=== PATIENT | female | born 1995 ===

== ENCOUNTER 2017-12-05 17:12 | Emergency (ER) | payer OTHER ==
[2017-12-05 17:29] VITALS: BP 118/68; PULSE 76; RESP 16; TEMP 98.5; O2SAT 99
[2017-12-05 17:30] VITALS: BMI 23.3
--- NOTE | 2017-12-05 18:34 | ED PDOC ---
HPI: General Adult Time Seen by Provider: 12/05/17 17:40 Chief Complaint (Nursing): Breast Problem Chief Complaint (Provider): Right breast pain History Per: Patient History/Exam Limitations: no limitations Additional History Per: Patient Additional Complaint(s): 22yo female, comes to ER complaining of pain to her right breast x 1 month. States it has progressively getting worse. Patient denies any fever, chills, nipple drainage. She offers no additional medical complaints. She states she is unsure if she is . Past Medical History Reviewed: Historical Data, Nursing Documentation, Vital Signs Vital Signs: Last Vital Signs Temp 98.5 F 12/05/17 17:33 Pulse 76 12/05/17 17:33 Resp 16 12/05/17 17:33 BP 118/68 12/05/17 17:33 Pulse Ox 99 12/05/17 18:39 - Medical History PMH: No Chronic Diseases - Surgical History Surgical History: No Surg Hx - Family History Family History: States: No Known Family Hx - Allergies Allergies/Adverse Reactions: Allergies Allergy/AdvReac Type Severity Reaction Status Date / Time No Known Allergies Allergy Verified 12/05/17 17:33 Review of Systems ROS Statement: Except As Marked, All Systems Reviewed And Found Negative Constitutional: Negative for: Fever, Chills Musculoskeletal: Positive for: Other (right breast pain) Physical Exam - Reviewed Nursing Documentation Reviewed: Yes Vital Signs Reviewed: Yes - Physical Exam Appears: Positive for: Non-toxic Head Exam: Positive for: ATRAUMATIC, NORMAL INSPECTION, NORMOCEPHALIC Skin: Positive for: Normal Color, Warm. Negative for: Rash Eye Exam: Positive for: Normal appearance Neck: Positive for: Supple Cardiovascular/Chest: Positive for: Regular Rate, Rhythm, Other (right lateral breast tender to palpation; no mass noted. No erythema, or skin changes like p' eau d'orange noted.) Respiratory: Positive for: Normal Breath Sounds Neurologic/Psych: Positive for: Alert, Oriented. Negative for: Motor/Sensory Deficits - ECG O2 Sat by Pulse Oximetry: 99 (rA) Pulse Ox Interpretation: Normal Medical Decision Making Medical Decision Making: Impression: Breast pain Plan: * ED Upreg (-) * * Motrin for pain. * Discussed f/u with women[facility] health clinic. Scribe Attestation: Documented by Sammi Lobo acting as a scribe for RHODA Sargent. Provider Attestation: All medical record entries made by the Scribe were at my direction and personally dictated by me. I have reviewed the chart and agree that the record accurately reflects my personal performance of the history, physical exam, medical decision making, and the department course for this patient. I have also personally directed, reviewed, and agree with the discharge instructions and disposition. Disposition - Clinical Impression Clinical Impression: Pain of breast - Patient ED Disposition Is Patient to be Admitted: No Counseled Patient/Family Regarding: Diagnosis, Need For Followup, Rx Given - Disposition Referrals: [facility] [Outside] Disposition: Routine/Home Disposition Time: 18:49 Condition: STABLE Instructions: Common Breast Problems Forms: [employer] (Botswanan)
== END 2017-12-05 19:04 | disposition home or self-care (01) ==
LOC: H.ER 17:12
DX: N64.4 Mastodynia (principal)

== ENCOUNTER 2018-04-13 15:22 | Emergency (ER) | payer SELFPAY ==
[2018-04-13 15:23] VITALS: BMI 23.3
[2018-04-13 15:39] VITALS: BP 128/76; PULSE 96; RESP 18; TEMP 98.3; O2SAT 99
[2018-04-13 17:07] LABS: SQUAMOUS EPITHIAL 13 /hpf (0-5); URINE BACTERIA OCC (<OCC); URINE BILIRUBIN NEGATIVE (NEGATIVE); URINE BLOOD SMALL (NEGATIVE); URINE CLARITY CLOUDY (Clear); URINE COLOR YELLOW (YELLOW); URINE GLUCOSE (UA) NEG (NEGATIVE); URINE LEUKOCYTE ESTERASE NEG Leu/uL (Negative); URINE PROTEIN NEGATIVE (NEGATIVE); URINE UROBILINOGEN 0.2-1.0 mg/dL (0.2-1.0)
[2018-04-13 17:09] LABS: BASO % 0.3 % (0.0-2.0); EOS # 0.1 K/uL (0.0-0.7); EOS % 0.6 % (0.0-4.0); HEMOGLOBIN 13.1 g/dL (12.0-16.0); LYMPH # 2.7 K/uL (1.0-4.3); LYMPH % 29.5 % (20.0-40.0); MEAN CELL VOLUME 86.9 fl (81.0-99.0); MEAN CORPUSCULAR HGB CONC 33.4 g/dL (33.0-37.0); MEAN PLATELET VOLUME 9.8 fl (7.2-11.7); MONO # 0.6 K/uL (0.0-0.8); MONO % 6.6 % (0.0-10.0); NEUT # 5.8 K/uL (1.8-7.0); NRBC % 0.1 % (0.0-0.0); RBC 4.52 Mil/uL (3.80-5.20); WHITE BLOOD COUNT 9.2 K/uL (4.8-10.8)
--- NOTE | 2018-04-13 17:16 | ED PDOC ---
HPI: Female Pain Time Seen by Provider: 04/13/18 15:42 Chief Complaint (Nursing): Female Genitourinary History Per: Patient, [employer] (Belgian [id number]) Additional Complaint(s): Pt. states for the past 4 days she's had surpapubic pain associated with nausea, vomiting (1 episode), diarrhea (4-5 episodes). Pt. states this morning she had a positive test but last week it was negative. Denies fever, chills, cough, congestion, vaginal bleeding, hx of ectopic , sick contacts, recent travel. Abnormal Vaginal Bleeding: No Last Menstral Period: 03/17/2018 : 1 Past Medical History Reviewed: Historical Data, Nursing Documentation, Vital Signs Vital Signs: Last Vital Signs Temp 98.3 F 04/13/18 15:37 Pulse 96 H 04/13/18 15:37 Resp 18 04/13/18 15:37 BP 128/76 04/13/18 15:37 Pulse Ox 99 04/13/18 15:37 - Surgical History Surgical History: No Surg Hx - Family History Family History: States: No Known Family Hx - Home Medications Home Medications: Ambulatory Orders Medication Instructions Recorded Ibuprofen [Motrin Tab] 800 mg PO Q6H PRN #20 tab 12/05/17 Multivit/Folic Acid/I 1 tab PO DAILY #30 tab 04/13/18 [ Plus] - Allergies Allergies/Adverse Reactions: Allergies Allergy/AdvReac Type Severity Reaction Status Date / Time No Known Allergies Allergy Verified 12/05/17 17:33 Review of Systems ROS Statement: Except As Marked, All Systems Reviewed And Found Negative Genitourinary Female: Positive for: Pelvic Pain Physical Exam - Physical Exam Appears: Positive for: Well, Non-toxic, No Acute Distress Skin: Positive for: Normal Color, Warm. Negative for: Rash Gastrointestinal/Abdominal: Positive for: Normal Exam, Soft. Negative for: Tenderness Back: Negative for: L CVA Tenderness, R CVA Tenderness Neurologic/Psych: Positive for: Alert, Oriented (x3) - Laboratory Results Result Diagrams: 04/13/18 17:04 04/13/18 17:04 - ECG O2 Sat by Pulse Oximetry: 99 - Progress ED Course And Treament: Labs, TVUS ordered. TVUS: No evidence of intrauterine gestation. Findings may represent early normal/abnormal with ectopic not excluded. Close clinical follow-up with serial pelvic sonography and serum beta HCG levels is recommended. Belgian #[id number] Pt. informed of results. Advised to return to ED or go to OBGYN in 72 hours for repeat HCG/US. All questions answered. Pt. is to return to ED immediately if symtpoms worsen. Pt. verbalized correct understanding of f/u and care. Disposition - Clinical Impression Clinical Impression: Threatened - Patient ED Disposition Is Patient to be Admitted: No - Disposition Referrals: [facility] [Outside] Disposition: Routine/Home Disposition Time: 17:44 Condition: STABLE Additional Instructions: FOLLOW UP WITH YOUR OBGYN OR RETURN TO ED IN 72 HOURS FOR REPEAT BHCG OR US. RETURN TO ED IMMEDIATELY IF SYMPTOMS WORSEN CATARINA ARTEAGA, thank you for letting us take care of you today. Your provider was Sharon Chiu MD and you were treated for ABD PAIN. The emergency medical care you received today was directed at your acute symptoms. If you were prescribed any medication, please fill it and take as directed. It may take several days for your symptoms to resolve. Return to the Emergency Department if your symptoms worsen, do not improve, or if you have any other problems. Please contact your doctor or call one of the physicians/clinics you have been referred to that are listed on the Patient Visit Information form that is included in your discharge packet. Bring any paperwork you were given at discharge with you along with any medications you are taking to your follow up visit. Our treatment cannot replace ongoing medical care by a primary care provider outside of the emergency department. Thank you for allowing the [facility] team to be part of your care today. If you had an X-Ray or CT scan: A Radiologist will review the ED reading if any change in treatment is needed we will contact you. If you had a blood, urine, or wound culture: It will take several days for the results, if any change in treatment is needed we will contact you. If you had an STI test: It will take 48 hours for the results. Please call after 1 week if you have not heard back. Prescriptions: Multivit/Folic Acid/I [ Plus] 1 tab PO DAILY #30 tab Instructions: Threatened Miscarriage (DC) Forms: [facility] (Spanish)
[2018-04-13 17:20] LABS: ALB/GLOB RATIO 1.2 (1.0-2.1); ALBUMIN 4.6 g/dL (3.5-5.0); ALT/SGPT 21 U/L (9-52); AST/SGOT 28 U/L (14-36); BLOOD UREA NITROGEN 15 mg/dl (7-17); CALCIUM 9.6 mg/dL (8.4-10.2); GFR NON-AFRICAN AMERICAN > 60
--- NOTE | 2018-04-13 17:33 | US ---
Date of service: 04/13/2018 PROCEDURE: OB Pelvic Ultrasound HISTORY: suprapubic pain LMP: 03/08/2018 COMPARISON: None available. FINDINGS: UTERUS: Uterus measures 7.2 x 4.6 x 3.4 cm. Normal in size and appearance. Questionable arcuate configuration. Endometrium measures 9 mm. No intrauterine gestational sac identified. CERVIX: Measures 4.2 cm. Long and closed. No cervical abnormality seen. RIGHT OVARY: Measures 4.2 x 3.1 x 3.8 cm. Corpus luteum measuring 2.2 x 1.9 x 1.9 cm. Normal flow. LEFT OVARY: Measures 2.7 x 2.4 x 1.2 cm. No solid mass. Normal flow. FREE FLUID: Trace. OTHER FINDINGS: None. IMPRESSION: No evidence of intrauterine gestation. Findings may represent early normal/abnormal with ectopic not excluded. Close clinical follow-up with serial pelvic sonography and serum beta HCG levels is recommended.
== END 2018-04-13 19:01 | disposition home or self-care (01) ==
LOC: H.ER 15:22
DX: O20.0 Threatened abortion (principal)

== ENCOUNTER 2018-04-17 15:02 | Emergency (ER) | payer SELFPAY ==
[2018-04-17 15:03] VITALS: BMI 23.3
[2018-04-17 15:12] VITALS: BP 122/75; PULSE 83; RESP 16; TEMP 97.7; O2SAT 99
--- NOTE | 2018-04-17 15:21 | ED PDOC ---
HPI: General Adult Time Seen by Provider: 04/17/18 15:14 Chief Complaint (Nursing): Medical Clearance Chief Complaint (Provider): Repeat labwork History Per: Patient History/Exam Limitations: no limitations Additional History Per: Patient Additional Complaint(s): 22yo female, comes to ER for a repeat beta-hcg per prior instructions. Patient was seen in this ER on 04/13/18 due to pelvic pain and at that time, had a beta- hcg level of 409.68. Patient had an US done, which did not demonstrate an IUP at that time. Patient reports her LMP was on 03/17/18 and states currently, her pelvic pain has improved. Otherwise, patient denies any vaginal bleeding or discharge. She additionally reports she has a scheduled appointment with her OBGYN on 05/10. Past Medical History Reviewed: Historical Data, Nursing Documentation, Vital Signs Vital Signs: Last Vital Signs Temp 97.7 F 04/17/18 15:11 Pulse 83 04/17/18 15:11 Resp 16 04/17/18 15:11 BP 122/75 04/17/18 15:11 Pulse Ox 99 04/17/18 15:11 - Medical History PMH: No Chronic Diseases - Surgical History Surgical History: No Surg Hx - Family History Family History: States: No Known Family Hx - Home Medications Home Medications: Ambulatory Orders Medication Instructions Recorded Ibuprofen [Motrin Tab] 800 mg PO Q6H PRN #20 tab 12/05/17 Multivit/Folic Acid/I 1 tab PO DAILY #30 tab 04/13/18 [ Plus] - Allergies Allergies/Adverse Reactions: Allergies Allergy/AdvReac Type Severity Reaction Status Date / Time No Known Allergies Allergy Verified 04/17/18 15:07 Review of Systems ROS Statement: Except As Marked, All Systems Reviewed And Found Negative Gastrointestinal: Negative for: Abdominal Pain Genitourinary Female: Negative for: Vaginal Discharge, Vaginal Bleeding, Pelvic Pain Physical Exam - Reviewed Nursing Documentation Reviewed: Yes Vital Signs Reviewed: Yes - Physical Exam Appears: Positive for: Non-toxic, No Acute Distress Head Exam: Positive for: NORMAL INSPECTION Skin: Positive for: Normal Color Eye Exam: Positive for: Normal appearance Neck: Positive for: Supple Cardiovascular/Chest: Positive for: Regular Rate, Rhythm Respiratory: Positive for: Normal Breath Sounds Gastrointestinal/Abdominal: Positive for: Normal Exam, Soft. Negative for: Tenderness Back: Positive for: Normal Inspection. Negative for: L CVA Tenderness, R CVA Tenderness Extremity: Positive for: Normal ROM Neurologic/Psych: Positive for: Alert, Oriented. Negative for: Motor/Sensory Deficits - ECG O2 Sat by Pulse Oximetry: 99 (RA) Pulse Ox Interpretation: Normal Medical Decision Making Medical Decision Making: Impression: 22yo female, EGA of 4 weeks, returns for repeat bloodwork Plan: -- Serum Beta-HCG -- US OB, 1540 Beta-HCG is 1989.20 1700 US FINDINGS: No pole identified. Gestational age below threshold for calculation of reliable gestational age based on gestational sac measurement 0.4 cm Gestational age derived from LMP: 5 weeks 5 days ALEXANDER based on LMP: 12/13/2018 Yolk sac not identified Cervix: No Cervical abnormalities: Negative examination for cervical dilatation or effacement. Closed cervix measuring 4.03 cm Subchorionic hemorrhage: None UTERUS: 3.5 x 4.8 x 7.0 cm. ADNEXA: Right: 3 x 2.5 x 4 cm. Solid mass 2.1 x 2.3 x 2.0 cm similar finding identified on the prior study. Normal Doppler arterial waveform documented. Left: 1.5 x 2.6 x 2.5 cm. Normal Doppler arterial waveform documented Fluid in the cul-de-sac: None IMPRESSION: Gestational sac, mean measurement 4 mm. Below the threshold for calculation of a reliable gestational age No visible yolk sac or pole identified. Plywood Scarfer Tender ([id number]) used to ensure accurate understanding: Patient informed of US and beta-HCG findings. Being that LMP was 03/17/18, likely inconclusive US results due to immaturity of . Informed of risks of flying while , and advised to contact OBGYN to get clearance to fly. Stable for discharge home; instructed to f/u with OBGYN as scheduled. Scribe Attestation: Documented by Sammi Lobo, acting as a scribe for RHODA Rivera. Provider Scribe Attestation: All medical record entries made by the Scribe were at my direction and personally dictated by me. I have reviewed the chart and agree that the record accurately reflects my personal performance of the history, physical exam, medical decision making, and the department course for this patient. I have also personally directed, reviewed, and agree with the discharge instructions and disposition. Disposition - Clinical Impression Clinical Impression: Early stage of - Patient ED Disposition Is Patient to be Admitted: No - Disposition Disposition: Routine/Home Disposition Time: 17:07 Condition: STABLE Additional Instructions: CATARINA ARTEAGA, thank you for letting us take care of you today. Your provider was Ladonna Younger MD and you were treated for 4 WKS PREG ABD PAIN. The emergency medical care you received today was directed at your acute symptoms. If you were prescribed any medication, please fill it and take as directed. It may take several days for your symptoms to resolve. Return to the Emergency Department if your symptoms worsen, do not improve, or if you have any other problems. Please contact your doctor or call one of the physicians/clinics you have been referred to that are listed on the Patient Visit Information form that is inc luded in your discharge packet. Bring any paperwork you were given at discharge with you along with any medications you are taking to your follow up visit. Our treatment cannot replace ongoing medical care by a primary care provider outside of the emergency department. Thank you for allowing the [facility] team to be part of your care today. If you had an X-Ray or CT scan: A Radiologist will review the ED reading if any change in treatment is needed we will contact you. If you had a blood, urine, or wound culture: It will take several days for the results, if any change in treatment is needed we will contact you. If you had an STI test: It will take 48 hours for the results. Please call after 1 week if you have not heard back. Instructions: - The First Month, Activity During Forms: [employer] (Paraguayan)
--- NOTE | 2018-04-17 16:58 | US ---
Date of service: 04/17/2018 PROCEDURE: First trimester ultrasound HISTORY: ; pelvic pain Beta HCG results: 1989.20 units. COMPARISON: 04/13/2018 TECHNIQUE: Standard protocol for this study/examination. FINDINGS: LMP: 03/08/2018 Prior examinations from the current : 04/13/2018 TECHNIQUE: Real-time 2D imaging, duplex and color Doppler. FINDINGS: No pole identified. Gestational age below threshold for calculation of reliable gestational age based on gestational sac measurement 0.4 cm Gestational age derived from LMP: 5 weeks 5 days ALEXANDER based on LMP: 12/13/2018 Yolk sac not identified Cervix: No Cervical abnormalities: Negative examination for cervical dilatation or effacement. Closed cervix measuring 4.03 cm Subchorionic hemorrhage: None UTERUS: 3.5 x 4.8 x 7.0 cm. ADNEXA: Right: 3 x 2.5 x 4 cm. Solid mass 2.1 x 2.3 x 2.0 cm similar finding identified on the prior study. Normal Doppler arterial waveform documented. Left: 1.5 x 2.6 x 2.5 cm. Normal Doppler arterial waveform documented Fluid in the cul-de-sac: None IMPRESSION: Gestational sac, mean measurement 4 mm. Below the threshold for calculation of a reliable gestational age No visible yolk sac or pole identified.
== END 2018-04-17 17:40 | disposition home or self-care (01) ==
LOC: H.ER 15:02
DX: Z33.1 Pregnant state, incidental (principal); O26.891 Other specified pregnancy related conditions, first trimester; Z3A.01 Less than 8 weeks gestation of pregnancy

== ENCOUNTER 2018-06-08 22:35 | Emergency (ER) | payer SELFPAY ==
[2018-06-08 22:35] VITALS: BMI 23.3
[2018-06-08 22:43] VITALS: TEMP 98.2; O2SAT 98
--- NOTE | 2018-06-08 23:23 | ED PDOC ---
HPI: Abdomen Time Seen by Provider: 06/08/18 22:53 Chief Complaint (Nursing): Abdominal Pain Chief Complaint (Provider): Abdominal pain and vaginal bleeding History Per: Patient History/Exam Limitations: no limitations Onset/Duration Of Symptoms: Hrs (x7) Associated Symptoms: denies: Nausea, Vomiting, Diarrhea Additional Complaint(s): 22 year old female, , presents to the ED complaining of vaginal bleeding and constant abdominal pain since 16:00 today. Patient reports she used 2 pads for vaginal bleeding today. She states she is 13 weeks and had an ultrasound at 4 weeks which was normal. Patient is scheduled for another ultrasound on June 13. She denies nausea, vomiting, and diarrhea. Of note, patient states her blood type is A+. PMD: Dr. Jaqueline Hernandez Past Medical History Reviewed: Historical Data, Nursing Documentation, Vital Signs Vital Signs: Last Vital Signs Temp 98.2 F 06/08/18 22:42 Pulse 81 06/08/18 22:42 Resp 16 06/08/18 22:42 BP 128/68 06/08/18 22:42 Pulse Ox 98 06/08/18 22:42 - Medical History PMH: No Chronic Diseases - Surgical History Surgical History: No Surg Hx - Family History Family History: States: Unknown Family Hx - Home Medications Home Medications: Ambulatory Orders Medication Instructions Recorded Ibuprofen [Motrin Tab] 800 mg PO Q6H PRN #20 tab 12/05/17 Multivit/Folic Acid/I 1 tab PO DAILY #30 tab 04/13/18 [ Plus] - Allergies Allergies/Adverse Reactions: Allergies Allergy/AdvReac Type Severity Reaction Status Date / Time No Known Allergies Allergy Verified 06/08/18 22:41 Review of Systems ROS Statement: Except As Marked, All Systems Reviewed And Found Negative Gastrointestinal: Positive for: Abdominal Pain. Negative for: Nausea, Vomiting, Diarrhea Genitourinary Female: Positive for: Vaginal Bleeding Physical Exam - Reviewed Nursing Documentation Reviewed: Yes Vital Signs Reviewed: Yes - Physical Exam Appears: Positive for: Non-toxic, No Acute Distress Head Exam: Positive for: ATRAUMATIC, NORMOCEPHALIC Skin: Positive for: Normal Color, Warm, Dry Eye Exam: Positive for: Normal appearance Neck: Positive for: Normal, Painless ROM Cardiovascular/Chest: Positive for: Regular Rate, Rhythm Respiratory: Negative for: Wheezing, Respiratory Distress Gastrointestinal/Abdominal: Positive for: Tenderness (suprapubic) Back: Positive for: Normal Inspection. Negative for: L CVA Tenderness, R CVA Tenderness Extremity: Positive for: Normal ROM Neurological/Psych: Positive for: Awake, Alert, Normal Tone, Oriented - ECG O2 Sat by Pulse Oximetry: 98 (RA) Pulse Ox Interpretation: Normal - Progress Re-evaluation Time: 02:06 Condition: Re-examined, Improved Medical Decision Making Medical Decision Making: Initial Impression: Abdominal pain and vaginal bleeding in Differential includes threatened and demise; less likely ectopic because patient had a normal US Initial Plan: --OB US --Urine dipstick Normal urine dipstick and (+) urine . 01:14 OB US Findings: Uterus measures 11.4x6.6 cm. Cervix is normal in length measuring 5 cm. An intrauterine is seen. Mean gestational sac diameter 4.3 cm which corresponds to an estimated gestational age of 9 weeks and 5 days. No cardiac activity is noted. Unremarkable ovaries. Impression: demise. 02:06 Upon reevaluation, patient is feeling better. 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 Scribe Attestation: Documented by Sesar Ram acting as a scribe for Timi Kan MD. Provider Scribe Attestation: All medical record entries made by the Scribe were at my direction and pe rsonally dictated by me. I have reviewed the chart and agree that the record accurately reflects my personal performance of the history, physical exam, medical decision making, and the department course for this patient. I have also personally directed, reviewed, and agree with the discharge instructions and disposition. Disposition - Clinical Impression Clinical Impression: demise - Patient ED Disposition Is Patient to be Admitted: No Doctor Will See Patient In The: Office Counseled Patient/Family Regarding: Studies Performed, Diagnosis, Need For Followup - Disposition Referrals: [facility] [Outside] Disposition: Routine/Home Disposition Time: 02:06 Condition: GOOD Additional Instructions: CATARINA ARTEAGA, thank you for letting us take care of you today. Your provider was Timi Kan MD and you were treated for 12 WEEKS ,VAGINAL BLEEDING,ABD PAIN. The emergency medical care you received today was directed at your acute symptoms. If you were prescribed any medication, please fill it and take as directed. It may take several days for your symptoms to resolve. Return to the Emergency Department if your symptoms worsen, do not improve, or if you have any other problems. Please contact your doctor or call one of the physicians/clinics you have been referred to that are listed on the Patient Visit Information form that is included in your discharge packet. Bring any paperwork you were given at discharge with you along with any medications you are taking to your follow up visit. Our treatment cannot replace ongoing medical care by a primary care provider outside of the emergency department. Thank you for allowing the [facility] team to be part of your care today. Instructions: Miscarriage (DC) Forms: [employer] (Portuguese) Print Language: GREEK
[2018-06-09 02:04] VITALS: BP 108/69; PULSE 79; RESP 18
--- NOTE | 2018-06-09 09:43 | US ---
Date of service: 06/08/2018 PROCEDURE: ultrasound HISTORY: lower abdominal pain vaginal bleeding COMPARISON: 04/13/2018, 04/17/2018 serial 1st trimester ultrasound. TECHNIQUE: Standard protocol for this study/examination. FINDINGS: LMP: 03/08/2018 Prior examinations from the current : 04/13/2018, 04/17/2018 serial 1st trimester ultrasound. TECHNIQUE: Real-time 2D imaging, duplex and color Doppler. FINDINGS: Cardiac activity: Absent Measurements: [place] rump length: 3.26 cm Gestational age based on CRL 10 weeks 1 day Gestational age 9 weeks 4 days based on gestational sac measurement 4.22 cm Gestational age derived from LMP: 13 weeks 1 day ALEXANDER based on LMP: 12/13/2018 ALEXANDER based on biometry: 01/05/2019 Gestational discordance approximately 3 weeks. Yolk sac not identified Cervix: No Cervical abnormalities: Negative examination for cervical dilatation or effacement. Closed cervix measuring 5.1 cm Subchorionic hemorrhage: None UTERUS: 6.6 x 11.4 cm. ADNEXA: Right: 1.8 x 2 x 3.6 cm. Normal Doppler arterial waveform documented. Left: 1.5 x 1.6 x 2.5 cm. Normal Doppler arterial waveform documented Fluid in the cul-de-sac: None IMPRESSION: Intrauterine demise. Cardiac activity not documented. Deformed irregular gestational sac. Concordant findings (preliminary report) provided by [facility].
== END 2018-06-09 02:47 | disposition home or self-care (01) ==
LOC: H.ER 22:35
DX: O36.4XX1 Maternal care for intrauterine death, fetus 1 (principal)

== ENCOUNTER 2018-06-10 08:10 | Emergency (ER) | payer SELFPAY ==
[2018-06-10 08:10] VITALS: BMI 23.3
[2018-06-10 08:32] VITALS: O2SAT 100
[2018-06-10] MEDS ORDERED: Sodium Chloride 0.9% 1,000 ML IV ONE (09:17)
[2018-06-10 09:53] LABS: BASO # 0.1 K/uL (0.0-0.2); BASO % 0.3 % (0.0-2.0); EOS # 0.1 K/uL (0.0-0.7); EOS % 0.6 % (0.0-4.0); HEMOGLOBIN 13.4 g/dL (12.0-16.0); LYMPH # 2.6 K/uL (1.0-4.3); LYMPH % 16.7 % (20.0-40.0); MEAN CELL VOLUME 86.5 fl (81.0-99.0); MEAN CORPUSCULAR HEMOGLOBIN 29.2 pg (27.0-31.0); MEAN CORPUSCULAR HGB CONC 33.8 g/dL (33.0-37.0); MEAN PLATELET VOLUME 9.3 fl (7.2-11.7); MONO # 0.9 K/uL (0.0-0.8); NEUT # 11.9 K/uL (1.8-7.0); NEUT % 76.4 % (50.0-75.0); NRBC % 0.1 % (0.0-0.0); RBC 4.58 Mil/uL (3.80-5.20); RED CELL DISTRIBUTION WIDTH 13.3 % (11.5-14.5); WHITE BLOOD COUNT 15.5 K/uL (4.8-10.8)
--- NOTE | 2018-06-10 09:58 | ED PDOC ---
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 denies: Fever, Chills, Vomiting, Diarrhea, Urinary Symptoms Additional Complaint(s): 22 year old female with no past medical history who is and is presenting to the ED for evaluation of intermittent episodes of abdominal pain ongoing for 2 days and vaginal bleeding onset this morning. Patient states that she was seen in this ED this ED 2 days ago for similar complaints and had an ultrasound done here that showed demise with no heart rate or cardiac activity. Her previous ultrasound showed a single IUP with cardiac activity. Of note, her OBGYN is Dr. Boone but states that she has an appointment with a different doctor in 2 days. Patient admits that she has been soaking through 2 pads an hour and reports a pain scale rating of 10/10 in regards to her abdominal pain. She has not taken anything for pain. She states that she had nausea which has since resolved and denies any vomiting, fevers, chills, urinary symptoms, or abdominal surgeries in the past. LNMP: 03/08/18 PMD: none provided Abnormal Vaginal Bleeding: Yes Past Medical History Reviewed: Historical Data, Nursing Documentation, Vital Signs Vital Signs: Last Vital Signs Temp 99.1 F 06/10/18 08:15 Pulse 76 06/10/18 08:15 Resp 16 06/10/18 08:15 BP 121/70 06/10/18 08:15 Pulse Ox 100 06/10/18 08:15 - Medical History PMH: No Chronic Diseases - Surgical History Surgical History: No Surg Hx - Family History Family History: States: Unknown Family Hx - Social History Current smoker - smoking cessation education provided: No Alcohol: None Drugs: Denies - Immunization History Hx Tetanus Toxoid Vaccination: No Hx Influenza Vaccination: No Hx Pneumococcal Vaccination: No - Home Medications Home Medications: Ambulatory Orders Medication Instructions Recorded Ibuprofen [Motrin Tab] 800 mg PO Q6H PRN #20 tab 12/05/17 Multivit/Folic Acid/I 1 tab PO DAILY #30 tab 04/13/18 [ Plus] Ibuprofen [Motrin Tab] 600 mg PO Q6 PRN #20 tab 06/10/18 traMADol [Ultram] 50 mg PO Q6 PRN #8 tab 06/10/18 - Allergies Allergies/Adverse Reactions: Allergies Allergy/AdvReac Type Severity Reaction Status Date / Time No Known Allergies Allergy Verified 06/08/18 22:41 Review of Systems ROS Statement: Except As Marked, All Systems Reviewed And Found Negative Constitutional: Negative for: Fever, Chills Gastrointestinal: Positive for: Nausea, Abdominal Pain. Negative for: Vomiting, Diarrhea Genitourinary Female: Positive for: Vaginal Bleeding. Negative for: Dysuria, Frequency, Hematuria Physical Exam - Reviewed Nursing Documentation Reviewed: Yes Vital Signs Reviewed: Yes - Physical Exam Appears: Positive for: Non-toxic, Uncomfortable (discomfort, writhing in pain ) Head Exam: Positive for: ATRAUMATIC, NORMAL INSPECTION, NORMOCEPHALIC Skin: Positive for: Normal Color, Warm, DRY Eye Exam: Positive for: EOMI, Normal appearance, PERRL ENT: Positive for: Normal ENT Inspection Neck: Positive for: Normal, Painless ROM Cardiovascular/Chest: Positive for: Regular Rate, Rhythm. Negative for: Murmur Respiratory: Positive for: Normal Breath Sounds. Negative for: Respiratory Distress Gastrointestinal/Abdominal: Positive for: Soft, Tenderness (diffuse tenderness to lower abdomen ). Negative for: Organomegaly, Mass, Distended, Guarding, Rebound Back: Positive for: Normal Inspection. Negative for: L CVA Tenderness, R CVA Tenderness, Vertebral Tenderness Extremity: Positive for: Normal ROM. Negative for: Deformity, Swelling Neurological/Psych: Positive for: Awake, Alert, Normal Tone, Oriented. Negative for: Motor/Sensory Deficits - Laboratory Results Result Diagrams: 06/10/18 09:37 06/10/18 09:37 - ECG O2 Sat by Pulse Oximetry: 100 (RA) Pulse Ox Interpretation: Normal Medical Decision Making Medical Decision Making: Time: 9:17 Plan: --Blood Type and Screen --Beta-HCG Quantative -- CMP --ED Urine --CBC --IV Fluids --Toradol 30 mg IVP --Urinalysis Shortly after arrival to the ED patient passed fetus. Previous US: FINDINGS: LMP: 03/08/2018 Prior examinations from the current : 04/13/2018, 04/17/2018 serial 1st trimester ultrasound. TECHNIQUE: Real-time 2D imaging, duplex and color Doppler. FINDINGS: Cardiac activity: Absent Measurements: [place] rump length: 3.26 cm Gestational age based on CRL 10 weeks 1 day Gestational age 9 weeks 4 days based on gestational sac measurement 4.22 cm Gestational age derived from LMP: 13 weeks 1 day ALEXANDER based on LMP: 12/13/2018 ALEXANDER based on biometry: 01/05/2019 Gestational discordance approximately 3 weeks. Yolk sac not identified Cervix: No Cervical abnormalities: Negative examination for cervical dilatation or effacement. Closed cervix measuring 5.1 cm Subchorionic hemorrhage: None UTERUS: 6.6 x 11.4 cm. ADNEXA: Right: 1.8 x 2 x 3.6 cm. Normal Doppler arterial waveform documented. Left: 1.5 x 1.6 x 2.5 cm. Normal Doppler arterial waveform documented Fluid in the cul-de-sac: None IMPRESSION: Intrauterine demise. Cardiac activity not documented. Deformed irregular gestational sac. 11:17 spoke with operations section manager Dr. Etelvina ROB- recommends sending fetus for pathology, as long as hemonymaincally stable pt can f/u as scheduled 11;28 on re eval pt is resting in stretcher, she states pain is improved but continues and wants something more for pain her abdomen is soft, (+) diffuse lower abdominal tenderness (-)rebound (- )guarding plan to treat with 2mg IV morphine and re eval 12:40 re eval, janeyyce translation used [id number] pt reports feeling better, but continues with pain that comes and goes in lower abdomen and has passed a couple large clots while here pt is resting comfortably in stretcher, eating meal with no problems, mild diffuse lower abdominal tenderness, no rebound or guarding, hgb stable, VSS, pt is stable for dc, f/u appointment in 2 days Discussed results, diagnosis, treatment, return precautions and f/u with pt using translation, pt is understanding, in agreement and stable for dc Scribe Attestation: Documented by Marissa Suero, acting as a scribe for Wilder Regineal Allen. Provider Scribe Attestation: All medical record entries made by the Scribe were at my direction and personally dictated by me. I have reviewed the chart and agree that the record accurately reflects my personal performance of the history, physical exam, medical decision making, and the department course for this patient. I have also personally directed, reviewed, and agree with the discharge instructions and disposition. Disposition - Clinical Impression Clinical Impression: Miscarriage - Patient ED Disposition Is Patient to be Admitted: No Counseled Patient/Family Regarding: Studies Performed, Diagnosis, Need For Followup, Rx Given - Disposition [facility] Disposition: Routine/Home Disposition Time: 12:51 Condition: IMPROVED Additional Instructions: Regrese a la ED para sntomas nuevos o que empeoran, fiebre> 100.4, dolor creciente, sangrado ivy, vmitos. Danie un seguimiento con dewitt gineclogo segn lo programado en 2 craft. [place] los medicamentos segn lo prescrito para el dolor . [place] ibuprofeno para el dolor y tramadol para empeorar el dolor. No conduzca ni alli alcohol cuando est tomando tramadol. Return to ED for new or worsening symptoms, fever >100.4, increasing pain, severe bleeding, vomiting. Follow up with your OBGYN as scheduled in 2 days. Take medications as prescribed for pain. Take Ibuprofen for pain and Tramadol for worsening pain. Do not drive or drink alcohol when taking tramadol. Prescriptions: Ibuprofen [Motrin Tab] 600 mg PO Q6 PRN #20 tab PRN Reason: Pain, Moderate (4-7) traMADol [Ultram] 50 mg PO Q6 PRN #8 tab PRN Reason: Pain, Severe (8-10) Instructions: Miscarriage, Dealing With Miscarriage Forms: [employer] (Polish) Print Language: BENGAL[place] - POA Present On Arrival: None
[2018-06-10 10:05] LABS: SQUAMOUS EPITHIAL 2 /hpf (0-5); URINE BACTERIA RARE (<OCC); URINE BILIRUBIN NEGATIVE (NEGATIVE); URINE BLOOD MODERATE (NEGATIVE); URINE CALCIUM OXALATE CRYSTALS OCC /hpf (<OCC); URINE CLARITY CLOUDY (Clear); URINE COLOR YELLOW (YELLOW); URINE GLUCOSE (UA) NEG (NEGATIVE); URINE LEUKOCYTE ESTERASE NEG Leu/uL (Negative); URINE PROTEIN 30 mg/dL (NEGATIVE); URINE UROBILINOGEN 0.2-1.0 mg/dL (0.2-1.0)
[2018-06-10 10:18] LABS: ALB/GLOB RATIO 1.2 (1.0-2.1); ALBUMIN 4.7 g/dL (3.5-5.0); ALT/SGPT 25 U/L (9-52); AST/SGOT 36 U/L (14-36); BLOOD UREA NITROGEN 11 mg/dl (7-17); CALCIUM 10.1 mg/dL (8.4-10.2); GFR NON-AFRICAN AMERICAN > 60
[2018-06-10 17:55] VITALS: BP 105/67; PULSE 87; RESP 16; TEMP 98.3
== END 2018-06-10 13:50 | disposition home or self-care (01) ==
LOC: H.ER 08:10
DX: O03.9 Complete or unspecified spontaneous abortion without complication (principal); Z3A.09 9 weeks gestation of pregnancy
CPT/HCPCS: 80053; 81003; 81025; 84702; 85025; 86850; 86900; 96374; 96375; 99284; J1885; J2270; J7040